=== PATIENT | female | born 1985 ===

== ENCOUNTER 2024-02-11 06:03 | Day surgery (SDC) | payer OTHER ==
[2024-01-30 10:24] LABS: HEMATOCRIT 43.5 % (36.0-45.00); HEMOGLOBIN 14.9 g/dL (12.0-15.00); MEAN CELL VOLUME 88.4 fL (80.00-100.00); MEAN CORPUSCULAR HEMOGLOBIN 30.3 pg (27.00-32.0); MEAN CORPUSCULAR HGB CONC 34.3 g/dl (32.0-36.0); PLATELET COUNT 275 K/uL (150-450); RED BLOOD COUNT 4.92 M/uL (4.00-6.00); RED CELL DISTRIBUTION WIDTH 13.8 % (11.5-14.5)
[2024-01-30 10:40] LABS: INR 0.97; PARTIAL THROMBOPLASTIN TIME 29.8 SECONDS (22.0-34.0)
[2024-01-30 10:41] LABS: PROTHROMBIN TIME 10.2 SECONDS (9.0-11.5)
[2024-01-30 10:47] LABS: ALBUMIN 3.9 gm/dL (3.4-5.0); BILIRUBIN TOTAL 0.86 mg/dL (0.3-1.2); CALCIUM 9.1 mg/dL (8.5-10.1); CREATININE SERUM 0.72 mg/dL (0.55-1.02); GFR 90.18; GLOBULINA 3.6 G/DL (2.4-3.5); POTASSIUM 4.42 mEq/L (3.5-5.1); TOTAL PROTEIN 7.5 gm/dL (6.4-8.2)
[2024-01-30 10:59] LABS: URINE APPEARANCE Clear; URINE BILIRRUBIN Negative (NEGATIVE); URINE BLOOD Trace; URINE COLOR Yellow; URINE GLUCOSE Negative (NEGATIVE); URINE LEUKOCYTE Negative; URINE NITRATE Negative; URINE PROTEIN Negative (NEGATIVE); URINE UROBILINOGEN 0.2 E.U./dl
[2024-01-30 11:08] LABS: URINE BACTERIA 326.2 uL (0.0-1933); URINE EPITHELIAL CELLS 4.9 uL (0.0-38.8); URINE RBC 6.8 uL (0.0-20.8); URINE WBC 3.7 uL (0.0-23.2)
[2024-02-11] MEDS ORDERED: POVIDONE-IODINE 118 ML BOTT TOP ONE ×2 (14:40→16:00)
[2024-02-11] MEDS ORDERED: LIDOCAINE HCL 1%/Epi 20ML VIAL IJ ONE ×2 (15:44→16:00)
[2024-02-11] MEDS ORDERED: BUPIVACAINE HCL/PF 0.5% 30ML ML ONE (15:44)
[2024-02-11] MEDS ORDERED: BUPIVACAINE HCL 30 ML VIAL IJ ONE (16:00)
[2024-02-11] MEDS ORDERED: THROMBIN,HU/FIBRINOGEN/CALCIUM 10 ML SYRINGE TOP ONE ×2 (17:13→17:30)
[2024-02-11] MEDS ORDERED: VISTASEAL DUAL APPICATOR 1 EACH APPL TOP ONE ×2 (17:16→17:30)
[2024-02-11] MEDS ORDERED: PROMETHAZINE HCL 50 MG/ML AMPUL IM PRN (17:45)
[2024-02-11] MEDS ORDERED: MORPHINE SULFATE 4 MG/ML VIAL IV PRN (17:45)
== END 2024-02-11 19:25 | disposition home or self-care (01) ==
LOC: CIR.AMB 06:03
PROVIDERS: ATTEND Obstetrics & Gynecology
DX: Z30.2 Encounter for sterilization (principal)